=== PATIENT | male | born 2000 | race Caucasian/White ===

== ENCOUNTER 2021-05-21 17:32 | Emergency (ER) | payer BC ==
[~2021-05-21] VITALS: Ht 177.8 cm; Wt 67.0 kg
[2021-05-21] MEDS ORDERED: CETI10CA2 PO (17:43)
[2021-05-21] MEDS ORDERED: NASA1SPR NARES (17:43)
--- NOTE | 2021-05-21 18:19 | REP ---
INDICATION: trauma, r/o foreign body;fracture COMPARISON: None. TECHNIQUE: AP, lateral, bilateral oblique and sunrise views. FINDINGS: Laceration over the patella with soft tissue swelling. No foreign body. No evidence for acute fracture or dislocation. IMPRESSION: Laceration. No acute fracture or dislocation. No foreign body. <Electronically signed by Ron Palacio > 05/21/21 [id number]
[2021-05-21] MEDS ORDERED: LIDOCAINE W/EPINEPHRINE 1% 20ML VIAL SC ONE (18:40)
[2021-05-21 19:44] VITALS: BP 126/68
== END 2021-05-21 19:45 | disposition home or self-care (01) ==
LOC: M ED 17:32
DX: S81.012A Laceration without foreign body, left knee, initial encounter (principal); V19.3XXA Pedal cyclist (driver) (passenger) injured in unspecified nontraffic accident, initial encounter; Y92.830 Public park as the place of occurrence of the external cause